=== PATIENT | female | born 1955 | race Caucasian/White ===

== ENCOUNTER 2017-01-09 10:09 | Emergency (ER) | payer MEDICARE, MEDICAID ==
[~2017-01-09 10:09] MED LIST: ACETAMINOPHEN500 M2 PO; ACETAMINOPHEN500 M4 PO; AMBIEN10 M1 PO; AMITRIPTYLINE100 M1 PO; ASPIRIN325 M3 PO; ASPIRIN325 MG PO; BACTROBAN15 GM; CATAPRES0.1 M1 PO; CELEBREX200 M1 PO; CELEXA40 MG PO; CITALOPRAM HBR20 M1 PO; CITALOPRAM HBR40 M1 PO; CLONIDINE HCL0.1 MG PO; COLACE100 M1 PO; ELAVIL100 MG PO; HYDROCHLOROTHIA25 M1 PO; HYDROCHLOROTHIA25 MG PO; HYDROCHLOROTHIA50 M1 PO; HYDROCODON-ACE1 EA15 PO; HYDROXYZINE HCL50 M1 PO; KEFLEX500 M4 PO; LISINOPRIL5 M1 PO; MILK OF MAGNESIA PO; MIRAPEX0.125 M1 PO; MOBIC15 M1 PO; NORCO 10/3251 TAB PO; NORVASC5 M1 PO; NORVASC5 M2 PO; NYSTATIN10 GM TOP; NYSTATIN15 GM TOP; OMEPRAZOLE20 M2 PO; ONE DAILY FOR1 EAC1 PO; PRILOSEC20 M1 PO; PRILOSEC40 MG PO; PRINIVIL5 MG PO; REQUIP1 M1 PO; REQUIP1 MG PO; ROXICODONE5 MG PO; SENOKOT-S TABLE1 TAB PO; STOOL SOFTENER100 MG PO; TRIPLE ANTIBIOT30 GM TOP; ULTRAM50 M1 PO; ULTRAM50 MG PO; XARELTO20 M1 PO; ZOCOR40 M1 PO; ZOCOR40 MG PO
[2017-01-09] MEDS ORDERED: DOXYCYCLINE MO100 M2 PO (10:46)
[2017-02-28] MEDS ORDERED: VIBRAMYCIN100 M1 PO (08:32)
== END 2017-01-09 11:15 ==
LOC: EDMED 10:09
DX: T81.4XXA Infection following a procedure, initial encounter (principal); T81.30XA Disruption of wound, unspecified, initial encounter; Z88.0 Allergy status to penicillin; Z88.5 Allergy status to narcotic agent; Z88.6 Allergy status to analgesic agent